=== PATIENT | female | born 1985 | race Caucasian/White ===

== ENCOUNTER 2016-11-30 04:57 | Inpatient (IN) | payer OTHER ==
[2016-11-30] VITALS (9 sets, daily range): BP systolic 90–129; BP diastolic 57–78
[~2016-11-30] VITALS: Ht 167.6 cm; Wt 65.9 kg
[~2016-11-30 04:57] MED LIST: IBUPROFEN800 MG PO; OXYCODONE HCL5 MG PO; PRENATAL TABLE1 EAC3 PO
[2016-11-30] MEDS ORDERED: MOTRIN800 MG PO (09:32)
[2016-12-01 06:17] LABS: EOSINOPHIL (%) 0.9 % (0-5); EOSINOPHIL COUNT 0.1 K/uL (0-0.3); HEMATOCRIT 37.4 % (36.0-46.0); IMMATURE GRANULOCYTE (%) 0.7 % (0.0-0.7); IMMATURE GRANULOCYTE COUNT 0.1 K/uL; INSTRUMENT ABS NEUTROPHIL CT 7.9 K/uL; LYMPHOCYTE COUNT 2.1 K/uL (1.0-2.8); MCH 30.8 PG (29.0-34.0); MCHC 34.5 G/DL (30.0-36.0); MCV 89.3 FL (83-99); MEAN PLAT.VOLUME 10.2 uM^3 (9.5-12.4); MONOCYTE (%) 5.2 % (3-12); MONOCYTE COUNT 0.6 K/uL (0-0.8); NEUTROPHIL (%) 73.5 % (45-76); NEUTROPHIL COUNT 7.9 K/uL (1.8-6.4); PLATELET COUNT 242 K/uL (156-360); RBC DIS.WIDTH-CV 13.2 % (11.8-14.6); RBC DIS.WIDTH-SD 43.4 % (39-53); RED BLOOD COUNT 4.19 M/uL (3.80-5.20); WHITE BLOOD COUNT 10.7 K/uL (4.1-10.2)
[2016-12-01 08:34] VITALS: BP 110/58
== END 2016-12-01 11:32 | disposition home or self-care (01) | DRG 775 ==
LOC: LDRP-OP 04:57 → 2WEST 04:58 → LDRP-OP 01-03 15:41
PROVIDERS: Midwife
DX: O62.3 Precipitate labor (principal); O69.1XX0 Labor and delivery complicated by cord around neck, with compression, not applicable or unspecified; O99.62 Diseases of the digestive system complicating childbirth; K21.9 Gastro-esophageal reflux disease without esophagitis; Z37.0 Single live birth; Z3A.39 39 weeks gestation of pregnancy; Z88.0 Allergy status to penicillin
CPT/HCPCS: 59025; 85025; J2590